=== PATIENT | female | born 1990 | race African-American/Black ===

== ENCOUNTER 2019-03-22 10:18 | Emergency (ER) | payer OTHER ==
[~2019-03-22] VITALS: Ht 160 cm; Wt 59.1 kg
[2019-03-22] MEDS: IBUPROFEN 800 MG TAB PO ONE (11:20)
--- NOTE | 2019-03-22 11:32 | REP ---
REASON FOR EXAM: Pain in the neck. COMPARISON: None. Vertebral body height and alignment is within normal limits. The disc spaces are symmetric and well maintained. There is no acute fracture. There is no abnormal paraspinal soft tissue swelling. IMPRESSION: CT findings are within normal limits. Electronically Signed by Qamar Benavides DO 03/22/2019 12:23 P
[2019-03-22] MEDS: CYCLOBENZAPRINE 5MG TABLET PO ONE (11:39)
[2019-03-22 11:41] VITALS: BP 110/76
[2019-03-22] MEDS ORDERED: CYCL5TAB PO (11:41)
== END 2019-03-22 11:45 | disposition home or self-care (01) ==
LOC: M ED 10:18
DX: S16.1XXA Strain of muscle, fascia and tendon at neck level, initial encounter (principal); X50.0XXA Overexertion from strenuous movement or load, initial encounter; Y92.89 Other specified places as the place of occurrence of the external cause; Y93.89 Activity, other specified; Y99.8 Other external cause status

== ENCOUNTER → 2019-09-09 | Outpatient (CLI) | payer OTHER ==
[~2019-09-09] MED LIST: CYCL5TAB PO
--- NOTE | 2019-09-10 02:46 | REP ---
Clinical: Anatomical evaluation. Comparison: None . Findings: Examination demonstrates a single live intrauterine in cephalic presentation. motion is identified by technologist. Placenta is noted anterior and grade zero without evidence for placenta previa or abruption. Amniotic fluid volume is normal. Cervix measures 4.0 cm in length and appears closed. No evidence for nuchal cord. Mass in the left fundal portion of the uterus measures 6.1 x 4.3 x 4.5 cm possibly representing fibroid. Gestational age by LMP 21 weeks 4 days with JAVIER 01/16/2020 . Gestational age by current measurements 22 weeks 3 days with JAVIER 01/10/2020 . FHR equals 141 beats per minute. Estimated weight 513 grams ( 78th percentile). Anatomical assessment demonstrates normal structures including cranium, choroid plexus, cavum, cerebellum/posterior fossa, facial features, lungs, diaphragm, stomach, cord insertion/three-vessel cord, kidneys/bladder, spine, and extremities. Echogenic focus within the left cardiac ventricle likely prominent chordae tendineae. Impression: 1. Single live intrauterine in cephalic presentation demonstrating appropriate estimated weight/growth. 2. Limited evaluation of the heart/ventricular outflow tracts as noted above. 3. Suspected fundal fibroid. Electronically Signed by Gregory Dangelo MD 09/10/2019 02:38 A
== END ==
LOC: M RAD 11:58
PROVIDERS: ATTEND Obstetrics & Gynecology
DX: Z34.02 Encounter for supervision of normal first pregnancy, second trimester (principal); Z3A.22 22 weeks gestation of pregnancy

== ENCOUNTER 2020-01-16 02:14 | Inpatient (IN) | payer OTHER ==
[~2020-01-16] VITALS: Ht 160 cm; Wt 84.5 kg
[2020-01-16] VITALS (31 sets, daily range): BP systolic 101–141; BP diastolic 56–95
[2020-01-16] MEDS: LR 1,000 ML IV SCH ×6 (06:24→22:12)
[2020-01-16] MEDS ORDERED: LACTATED RINGER'S 1000 ML IV ONE (06:30)
[2020-01-16 06:43] LABS: HEMATOCRIT 43.6 % (36.0-47.0); HEMOGLOBIN 13.8 g/dl (12.0-15.5); MEAN CORPUSCULAR HEMOGLOBIN 28.2 pg (27.0-33.0); MEAN CORPUSCULAR HGB CONC 31.7 g/dl (32.0-36.5); MEAN CORPUSCULAR VOLUME 89.2 fl (80.0-96.0); PLATELET COUNT, AUTOMATED 228 10^3/uL (150-450); RED BLOOD COUNT 4.89 10^6/uL (4.00-5.40); WHITE BLOOD COUNT 10.3 10^3/uL (4.0-10.0)
[2020-01-16] MEDS ORDERED: OXYTOCIN 30 UNITS IN 0.9% NaCl 500ML IV BAG (J2590) As Ordered ONE ×2 (08:46→15:55)
[2020-01-16] MEDS ORDERED: OXYTOCIN DRIP 30 UNITS in IV 1 EA IV SCH (09:00)
[2020-01-16] MEDS ORDERED: FENTANYL 2MCG/ML ROPIVACAINE 0.2% IN 0.9% NACL 100ML IVBAG As Ordered ONE (10:01)
[2020-01-16] MEDS ORDERED: FENTANYL/ROPIVACAINE/NACL BAG 100 ML EPIDURAL SCH (11:45)
[2020-01-16] MEDS ORDERED: ONDANSETRON 4MG/2ML VIAL IV PRN ×4 (11:45→18:00)
[2020-01-16] MEDS ORDERED: diphenhydrAMINE 50MG/ML VIAL (J1200) IV PRN ×2 (11:45→15:45)
[2020-01-16] MEDS ORDERED: ePHEDrine SULFATE 25 MG/5 ML(5MG/ML) SYRINGE IV PRN (11:45)
[2020-01-16] MEDS ORDERED: REFRIGERATOR IV KEYS XX PRN (11:45)
[2020-01-16] MEDS ORDERED: NALOXONE INJ 0.4MG/1ML VIAL (J2310 PER 1MG) IV PRN ×3 (11:45→15:45)
[2020-01-16] MEDS ORDERED: LACTATED RINGER'S 1000 ML IV PRN (11:45)
[2020-01-16] MEDS ORDERED: EPIDURAL COMMENT XX SCH (11:45)
[2020-01-16] MEDS ORDERED: EPIDURAL/PCA KEYS XX PRN (11:45)
[2020-01-16] MEDS ORDERED: ceFAZolin 2 GM/D5W 50 ML IV BAG (J0690 PER 500MG) As Ordered ONE (15:32)
[2020-01-16] MEDS ORDERED: BICITRA 30ML SOLN UDC As Ordered ONE (15:32)
[2020-01-16] MEDS ORDERED: KETOROLAC 60MG 2ML VIAL As Ordered ONE (15:43)
[2020-01-16] MEDS ORDERED: ONDANSETRON 4MG/2ML VIAL As Ordered ONE (15:43)
[2020-01-16] MEDS ORDERED: dexameTHASONE 4 MG/ML 1ML VIAL (J1100 PER 1MG) As Ordered ONE (15:43)
[2020-01-16] MEDS ORDERED: MORPHINE PRES-FREE INJ 10 MG/10 ML VIAL (J2274) As Ordered ONE (15:44)
[2020-01-16] MEDS ORDERED: NALBUPHINE HCL 10 MG/ML AMP (J2300) IV PRN (15:45)
[2020-01-16] MEDS ORDERED: METOCLOPRAMIDE INJ 10MG/2ML VIAL (J2765 PER 1) IV PRN (15:45)
[2020-01-16] MEDS ORDERED: OXYTOCIN INJ 10 UNITS/ML VIAL (J2590) As Ordered ONE (15:48)
[2020-01-16] MEDS ORDERED: PHENYLephrine HCL 500 MCG/5 ML (100MCG/ML) SYRINGE (J2370) As Ordered ONE (15:49)
[2020-01-16] MEDS ORDERED: ACETAMINOPHEN 1000MG 100ML IV BTL (OFIRMEV) (J0131 PER 10MG) As Ordered ONE (15:55)
[2020-01-16 15:57] LABS: CORD GAS ABE A -2.7; CORD GAS ABE V -5.2; CORD GAS HCO3 V 21.6 MEQ/L; CORD GAS O2 SAT V 67.7 %; CORD GAS PCO2 A 68.5 mmHg; CORD GAS PCO2 V 46.4 mmHg; CORD GAS PH A 7.213 UNITS; CORD GAS PH V 7.285 UNITS; CORD GAS PO2 A 17.8 mmHg; CORD GAS PO2 V 31.2 mmHg; CORD GAS SBC A 20.6 MEQ/L; CORD GAS SBC V 19.5 MEQ/L; CORD GAS TCO2 A 29.1 MEQ/L
[2020-01-16] MEDS: OXYTOCIN DRIP 30 UNITS in IV 1 EA IV SCH ×2 (16:31→20:16)
[2020-01-16] MEDS ORDERED: MOM 30ML SUSPENSION UDC PO PRN (16:45)
[2020-01-16] MEDS ORDERED: PERCOCET 5MG/325MG TAB PO PRN (16:45)
[2020-01-16] MEDS ORDERED: MEASLES,MUMPS,RUBELLA VACCINE INJ (MMR-II) (90707) SC SCH (16:45)
[2020-01-16] MEDS ORDERED: RHOGAM 300 MCG (1500 IU) INJ (J2790) IM SCH (16:45)
[2020-01-16] MEDS ORDERED: ANUSOL HC CREAM 30GM TOP PRN (16:45)
--- NOTE | 2020-01-16 17:18 | ROOPDOC ---
[facility] Report Of Operation Report of Operation DATE OF PROCEDURE: 01/16/20 SURGEON: Savannah Sierra M.D. FIBRE [employer] CABLE SPLICER:None PROCEDURE: Primary section PREOPERATIVE DIAGNOSIS: 1. Nonreassuring heart rate tracing with bradycardia POSTOPERATIVE DIAGNOSIS: 1. Nonreassuring heart rate tracing with bradycardia ANESTHESIA: Epidural ESTIMATED BLOOD LOSS: 500 mL URINE OUTPUT: 550 mL INTRAVENOUS FLUIDS:2000 mL of lactated Ringer's solution PREOPERATIVE ANTIBIOTICS:. 2 g of Ancef OPERATIVE FINDINGS: Liveborn female , Apgars 9 and 9. Weight 2980 g 6 lbs. 9 oz. cord gases 7.21 7.28 with base excess is -2.7-5.2 respectively patient with fibroid uterus to anterior and fundal fibroids one approximately 3-5 cm larger fundal fibroid was approximately 8 cm. SPECIMENS: Cord blood and gases INDICATION FOR OPERATIVE: 29-year-old 1 who presented with complaints of contraction initially was and admitted and her labor was augmented to secondary to intermittent category 2 heart rate tracing. Her labor progress and she received an epidural without event. She had one bradycardic event which responded to conservative measures and was examined at which time she was found to be 8 cm dilated. Artificial rupture of membranes was performed and approximately 1.5hrs later she had a second event with bradycardia in the 50s despite conservative resuscitative effort heart rate remained down in the 50s. She was verbally consented for emergency surgery as well as verbally consented for blood products and was taken emergently to the operating room for a section secondary to nonreassuring heart rate tracing with bradycardia. DESCRIPTION OF PROCEDURE: After informed consent was obtained and written consent was reviewed. The patient was brought urgently to the operating room. She was then placed in the supine position with a left lateral tilt. Dodd catheter was previously placed and to gravity. Patient was then prepped and draped in the normal sterile fashion. A timeout operating room was performed identifying the patient, procedure be performed as well as drug allergies. Anesthesia was tested and deemed to be adequate. Pfannenstiel skin incision was made and this was carried down to the underlying rectus fascia. The fascia was then scored and this incision was extended bilaterally. The rectus muscles were then in the midline. The peritoneum is then entered. Next, a curvilinear incision was then made in the lower uterine segment. The head was brought to the level of the incision atraumatically and delivered along the shoulders and corpus. The cord was clamped x2 and cut. The was brought over to the warmer with a good cry. Placenta was drained and delivered grossly intact. Mobius retractor was then placed. The uterus was cleared of all clots and debris and the uterine incision was then closed using 0 Vicryl in a running locking fashion followed. The abdomen suctioned. Surgical sites reinspected and noted be hemostatic. The retractor was then removed. The anterior peritoneum was then reapproximated with 3-0 Vicryl. The rectus muscles were reapproximated 3-0 Vicryl. The fascia was then closed using 0 Vicryl in a running nonlocking fashion. The subcutaneous tissues was then irrigated and suctioned. Subcutaneous tissue was reapproximated using 3-0 Vicryl. Several subdermal stitch is placed using 3-0 Vicryl and the skin was closed with 4-0 Monocryl and subcuticular fashion. This incision was then cleaned and dried and was dressed. The patient was then taken to recovery in stable condition. All counts were correct. The couple has decided to name the Alpa. SAVANNAH SIERRA MD. Jan 16, 2020 17:18
[2020-01-16 17:51] LABS: HIV 1&2 SCREEN CENTAUR NEGATIVE (NEGATIVE)
[2020-01-16] MEDS ORDERED: fentaNYL 100 MCG/2 ML INJECTION (J3010) IV PRN (18:00)
[2020-01-16] MEDS ORDERED: oxyCODONE 5MG TAB PO PRN (18:00)
[2020-01-16] MEDS ORDERED: PERCOCET 5MG/325MG TAB As Ordered ONE (19:54)
[2020-01-16] MEDS: PERCOCET 5MG/325MG TAB PO PRN (19:55)
[2020-01-16] MEDS: DOCUSATE SODIUM 100 MG CAP PO SCH (21:00)
[2020-01-16] MEDS: KETOROLAC 30 MG/ML 1ML VIAL IV SCH (22:12)
[2020-01-17 02:00] VITALS: BP 122/62
[2020-01-17] MEDS: KETOROLAC 30 MG/ML 1ML VIAL IV SCH ×2 (04:19→09:17)
[2020-01-17 06:00] VITALS: BP 124/73
[2020-01-17] MEDS: LR 1,000 ML IV SCH (08:31)
--- NOTE | 2020-01-17 08:52 | IPNPDOC ---
Progress Note Date of Service: Jan 17, 2020 Day#: 1 Progress Note SUBJECT: Doing well without complaints. Ambulating, voiding and pain is well-c ontrolled. Reports minimal lochia. OBJECTIVE: VITAL SIGNS: Within normal limits, afebrile. Alert and oriented times three. Abdomen: Fundus firm at U-2. Soft, NTTP. Incision: dressed Ext: neg calf tenderness. ASSESSMENT: /postoperative day #1 status post delivery. Recovering in stable condition. PLAN: 1. Continue routine /postoperative care 2. Discharge plans for tomorrow VS, I&O, 24H, Fishbone Vital Signs/I&O Vital Signs Date Time Temp Pulse Resp B/P (MAP) Pulse Ox O2 Delivery O2 Flow Rate FiO2 01/17/20 06:00 98.2 74 18 124/73 (90) 99 Room Air I&O- Last 24 Hours up to 6 AM 01/17/20 06:00 Intake Total 3770.7 ml Output Total 3350 ml Balance 420.7 ml Laboratory Data 24H LABS Laboratory Tests 2 01/16/20 15:45: Cord Arterial Blood pH 7.213, Cord Arterial Blood PCO2 68.5, Cord Arterial Blood PO2 17.8, Cord Arterial Blood HCO3 27.0, Cord Arterial Blood Total CO2 29.1, Cord Arterial Blood Base Excess -2.7, Cord Arterial Base Excess (Standard 20.6, Cord Arterial Bld Oxygen Saturation 31.0, Cord Venous Blood pH 7.285, Cord Venous Blood PCO2 46.4, Cord Venous Blood PO2 31.2, Cord Venous Blood HCO3 21.6, Cord Venous Blood Total CO2 23.0, Cord Venous Base Excess (Actual) -5.2, Cord Venous Base Excess (Standard) 19.5, Cord Venous Blood Oxygen Saturation 67.7 LISA WHITTEN MD. Jan 17, 2020 08:52
[2020-01-17 09:17] LABS: HEMATOCRIT 30.3 % (36.0-47.0); MEAN CORPUSCULAR HEMOGLOBIN 28.8 pg (27.0-33.0); MEAN CORPUSCULAR HGB CONC 32.3 g/dl (32.0-36.5); MEAN CORPUSCULAR VOLUME 89.1 fl (80.0-96.0); PLATELET COUNT, AUTOMATED 173 10^3/uL (150-450); WHITE BLOOD COUNT 10.9 10^3/uL (4.0-10.0)
[2020-01-17] MEDS: DOCUSATE SODIUM 100 MG CAP PO SCH ×2 (09:17→20:27)
[2020-01-17] MEDS: PRENATAL VITAMINS CHEWABLE TABLET PO SCH (09:17)
[2020-01-17 09:27] LABS: HEMOGLOBIN 9.8 g/dl (12.0-15.5)
[2020-01-17 10:00] VITALS: BP 110/76
[2020-01-17 14:24] VITALS: BP 122/77
[2020-01-17] MEDS: IBUPROFEN 800 MG TAB PO SCH (17:04)
[2020-01-17 18:12] VITALS: BP 115/72
[2020-01-17] MEDS ORDERED: PERCOCET PO (20:00)
[2020-01-17] MEDS ORDERED: DOCU100C16 PO (20:00)
[2020-01-17] MEDS ORDERED: IBUP80TA PO (20:00)
[2020-01-17] MEDS ORDERED: PROC1CRE5 TOP (20:00)
[2020-01-17] MEDS: PERCOCET 5MG/325MG TAB PO PRN (20:27)
[2020-01-17 22:50] VITALS: BP 132/84
[2020-01-18 02:00] VITALS: BP 132/88
[2020-01-18] MEDS: IBUPROFEN 800 MG TAB PO SCH ×2 (02:05→10:28)
[2020-01-18 06:00] VITALS: BP 116/86
[2020-01-18] MEDS: PRENATAL VITAMINS CHEWABLE TABLET PO SCH (08:01)
[2020-01-18] MEDS: DOCUSATE SODIUM 100 MG CAP PO SCH (08:01)
--- NOTE | 2020-01-18 08:22 | OBDS ---
[facility] Obstetrical Discharge Sum. Obstetrical Discharge Summary Date: Jan 18, 2020 : 1 Term: 1 Livin VDRL: Non-Reactive Rh: Positive Rubella: Immune Delivery PLTCS for NRFHT Sex: Female Weight: grams (2980) Anesthesia: Regional Anesthesia A/P, Post Course List any complications Admission diagnosis: 1. Term . 2. Active Labor Discharge diagnosis: 1. Term 2. NRFHT 3. Active Labor Condition at Discharge: Good Discharge Instructions: Home Activity: Ad bertrand, pelvic rest, no lifting >10lbs Diet: Regular Medications: As prescribed at 36wks, Vicodin Follow-up: 2wks Other: None Course: Uncomplicated. Hospital Course: Patient was admitted for labor which progressed with difficulty due to NRFHT which resulted in a PLTCS. course was uncomplicated with normal lochia, normal urination, ambulation, tolerating a diet, and controlled pain. Cierra Blanca MD Jan 17, 2020 19:55
--- NOTE | 2020-01-18 08:23 | IPNPDOC ---
Progress Note Date of Service: Jan 18, 2020 Day#: 2 Progress Note SUBJECT: Patient is a 29-year-old 1 now Para 1 status post uncomplicated PLTCS for NRFHT, doing well postoperative day # 2. She has been ambulating, voiding spontaneously without issue and tolerating regular diet. Breast feeding without issue. Reports lochia is less than a normal period. Patient is ambulating well. Reports some cramping with . She has mild pain mostly with movement. Voiding and flatus without difficulty. OBJECTIVE: VITAL SIGNS: Within normal limits, afebrile. GENERAL: No acute distress HEENT: Mucous membranes are moist BREAST: Nontender, no erythema CARDIOVASCULAR: RRR RESPIRATORY: Bilaterally clear ABDOMINAL EXAMINATION: Soft, appropriate tenderness, nondistended, fundus -2 PERINEUM: Intact, minimal lochia EXTREMITIES: no edema, nontender WOUND: Dressing clean and intact ASSESSMENT: Patient is a 29-year-old 1 now Para 1 status post unco mplicated PLTCS for NRFHT, doing well postoperative day # 2. Vitals within normal limits, afebrile, hemodynamically stable with no evidence of infection. PLAN: 1. Discharge to home today. 2. Tylenol and Motrin and Vicodin for pain. 3. Encourage breast feeding and ambulation. 4. Routine PP visit in 6 weeks in clinic. 5. Discussed return precautions at length. VS, I&O, 24H, Duybone Vital Signs/I&O Vital Signs Date Time Temp Pulse Resp B/P (MAP) Pulse Ox O2 Delivery O2 Flow Rate FiO2 01/17/20 18:12 99.1 99 18 115/72 (86) 100 Room Air I&O- Last 24 Hours up to 6 AM 01/17/20 06:00 Intake Total 3770.7 ml Output Total 3350 ml Balance 420.7 ml Laboratory Data 24H LABS Laboratory Tests 2 01/17/20 08:36: Nucleated Red Blood Cells % (auto) 0.0 CBC/BMP Laboratory Tests 01/17/20 08:36 Cierra Blanca MD Jan 17, 2020 19:59
[2020-01-18] MEDS ORDERED: INFLUENZA QUADRIVALENT PF VACCINE 0.5ML SYRINGE IM ONE (09:00)
[2020-01-18 11:30] VITALS: BP 108/58
--- NOTE | 2020-01-21 10:36 | HPE ---
"DATE OF ADMISSION: 01/16/2020 HISTORY OF PRESENT ILLNESS: This is a 28-year-old 1, para 0, last menstrual period (LMP) 04/11/2019, estimated date of confinement (EDC) 01/16/2020 at 40 weeks of gestation, comes in with a history of contractions and decreased movement. LABORATORY DATA: O positive, HIV negative, hepatitis negative, RPR negative, rubella immune. Varicella immune. Pap normal. Urine negative. Gonorrhea and chlamydia are negative. One-hour glucose 128. Group B strep (GBS) is negative. Blood pressure is 121/89, respirations 16, pulse 78, temperature 96.8. Urine is 1.015, pH is 6. The rest is negative. PHYSICAL EXAMINATION: No distress. She does have contractions every 3 to 5 minutes, moderate in intensity when they come, good interval rest. Symphysis fundus height is 40. Vertex OA. She has made change from admission. She is 3 cm, posterior soft, 50%, -3 station. Despite hydration and positional change, we still have a category 2 strip with some decreased variability. No decelerations were noted. Contractions are monitored. Not really accelerations per say. The rest of the examination is unremarkable. She is normocephalic, atraumatic. Neck: Full range of motion. Pupils equal and reactive to light. Distal pulses symmetric. No evidence of deep venous thrombosis (DVT), pulmonary embolus (PE) or superficial phlebitis. Chest is clear bilaterally at the bases. No wheezes or rhonchi. No costovertebral angle (CVA) tenderness. Abdomen is soft, four quadrants bowel sounds are noted. Symphysis fundus height is appropriate. No WHITE SHOE RAGGER history. No abnormal Pap. No STDs PAST MEDICAL HISTORY: Unremarkable SURGICAL HISTORY: Unremarkable. | FAMILY HISTORY: Noncontributory. SOCIAL HISTORY: She does not smoke, drink, abuse drugs and there is no domestic violence and she has good support system. REVIEW OF SYSTEMS: She has no rashes, lesions or pruritus. No arthralgia, myalgia. No complaint of joint pain. No complaint of cough, wheeze, shortness of breath or dyspnea on exertion. No nausea, vomiting, diarrhea or constipation. No urgency, frequency. No heat or cold sensitivity. No diabetic issues. PLAN: We discussed the plan of care because of the category 2 strip. We also discussed consent for delivery through the vagina with the possible use of forceps or vacuums if needed for maternal or indications. These devices consist with a vaginal delivery when normal pushing efforts cannot achieve delivery on their own or when delivery is needed in an emergency for the babys well-being. Medication used to induced or augment labor are used in order to improve contractions and may lead to vaginal delivery. They also may lead to emergency for babys well being leading to section because of distress. This will be discussed with and prior to commencement and they are only done for maternal and indications. She may also require episiotomy to allow the baby to deliver vaginally or you may have lacerations or tears of the vagina, the vulva, that are caused by vaginal delivery, which require repair. Sometimes, urgent section is required and is safer for mom and baby than continuing labor and is only performed with or maternal indications. Other risks of vaginal delivery include, not limited to bleeding, infection, injury to the vagina, pelvic structures, injury to baby, damage to the uterus, reactions to anesthesia, uterine rupture, and risk of hysterectomy for life threatening bleeding issues or even . Medications used to induce or augment delivery increase the risk of infection, uterine tachysystole, uterine rupture, heart abnormalities, require need for emergency section or hemorrhage, risk of use of forceps may be scratches or hematomas to the head or intracranial bleed. The patient expressed understanding of all discussions, 30 minute discussion. The patient consented to continuing, safe to proceed. We are going to monitor the patient despite resuscitation matters which is IV fluids and positional change. Baby still has a category 2 strip. Our plan is for augmentation of labor and epidural as needed. All questions were answered. JOSE RAUL"
== END 2020-01-18 12:00 | disposition home or self-care (01) | DRG 773 ==
LOC: M LDO 02:14 → M LDI 06:26 → M OBS 20:57
PROVIDERS: ADMIT Obstetrics & Gynecology; ATTEND Obstetrics & Gynecology
PROC: 10D00Z1 Extraction of Products of Conception, Low, Open Approach (ICD-10-PCS; principal; 2020-01-16 15:40)
DX: O76 Abnormality in fetal heart rate and rhythm complicating labor and delivery (principal); Z3A.40 40 weeks gestation of pregnancy; Z37.0 Single live birth